=== PATIENT | female | born 1985 | race Caucasian/White ===

== ENCOUNTER 2019-09-24 23:38 | Emergency (ER) | payer OTHER ==
[~2019-09-24] VITALS: Ht 160 cm; Wt 55.9 kg
[2019-09-25] MEDS ORDERED: NS 1,000 ML IV ONE (00:15)
[2019-09-25 00:30] LABS: BASO % 0.7 % (0.0-1.0); EOS # 0.3 10^3/uL (0.0-0.5); EOS % 4.8 % (0.0-3.0); HEMATOCRIT 39.1 % (36.0-47.0); HEMOGLOBIN 12.8 g/dl (12.0-15.5); LYMPH # 1.9 10^3/uL (1.5-5.0); MEAN CORPUSCULAR HEMOGLOBIN 28.2 pg (27.0-33.0); MEAN CORPUSCULAR HGB CONC 32.7 g/dl (32.0-36.5); MEAN CORPUSCULAR VOLUME 86.1 fl (80.0-96.0); MONO # 0.5 10^3/uL (0.0-0.8); MONO % 8.8 % (0.0-5.0); NEUTROPHILS # 3.1 10^3/uL (1.5-8.5); NEUTROPHILS % 53.4 % (36.0-66.0); PLATELET COUNT, AUTOMATED 193 10^3/uL (150-450); RED BLOOD COUNT 4.54 10^6/uL (4.00-5.40); WHITE BLOOD COUNT 5.8 10^3/uL (4.0-10.0)
[2019-09-25 00:37] LABS: APPEARANCE, URINE CLEAR (CLEAR); BACTERIA, URINE AUTO NEGATIVE (NEGATIVE); BILIRUBIN, URINE AUTO NEGATIVE (NEGATIVE); BLOOD, URINE BLOOD 1+ (NEGATIVE); COLOR, URINE YELLOW (YELLOW); GLUCOSE, URINE (UA) AUTO NEGATIVE (NEGATIVE); KETONE, URINE AUTO TRACE mg/dL (NEGATIVE); LEUKOCYTE ESTERASE, URINE AUTO NEGATIVE (NEGATIVE); MUCUS, URINE SMALL (NEGATIVE); NITRITE, URINE AUTO NEGATIVE (NEGATIVE); PROTEIN, URINE AUTO NEGATIVE (NEGATIVE); RBC, URINE AUTO 10 /HPF (0-3); SPECIFIC GRAVITY URINE AUTO 1.016 (1.002-1.035); SQUAMOUS EPITHELIAL CELL UR AU 1 /HPF (0-6); UROBILINOGEN, URINE AUTO 0.2 mg/dL (0.0-2.0); WBC, URINE AUTO 2 /HPF (0-3)
[2019-09-25 00:51] LABS: ALBUMIN 4.1 GM/DL (3.2-5.2); ALT/SGPT 19 U/L (12-78); BILIRUBIN,DIRECT 0.1 MG/DL (0.0-0.2); BILIRUBIN,TOTAL 0.4 MG/DL (0.2-1.0); BLOOD UREA NITROGEN 13 MG/DL (7-18); CALCIUM LEVEL 9.5 MG/DL (8.5-10.1); CARBON DIOXIDE LEVEL 24 MEQ/L (21-32); CHLORIDE LEVEL 104 MEQ/L (98-107); CREATININE FOR GFR 0.92 MG/DL (0.55-1.30); GLOMERULAR FILTRATION RATE > 60.0 (>60); GLUCOSE, FASTING 123 MG/DL (70-100); HCG, SERUM QUANTITATIVE 189 MIU/ML; POTASSIUM SERUM 3.3 MEQ/L (3.5-5.1); SODIUM LEVEL 138 MEQ/L (136-145); TOTAL PROTEIN 7.8 GM/DL (6.4-8.2)
[2019-09-25] MEDS ORDERED: REGL10TA6 PO (01:13)
[2019-09-25 01:27] VITALS: BP 114/62
== END 2019-09-25 01:27 | disposition home or self-care (01) ==
LOC: M ED 23:38
DX: O99.89 Other specified diseases and conditions complicating pregnancy, childbirth and the puerperium (principal); R11.0 Nausea; Z3A.22 22 weeks gestation of pregnancy; Z88.5 Allergy status to narcotic agent; Z88.8 Allergy status to other drugs, medicaments and biological substances

== ENCOUNTER 2019-10-20 03:34 | Day surgery (SDC) | payer OTHER ==
[~2019-10-20] VITALS: Ht 160 cm; Wt 58.2 kg
[~2019-10-20 03:34] MED LIST: REGL10TA6 PO
[2019-10-20] MEDS ORDERED: MORPHINE 4 MG/ML 1ML VIAL/SYRINGE (J2270) IM ONE (04:15)
[2019-10-20 04:44] LABS: BASO % 0.3 % (0.0-1.0); EOS # 0.2 10^3/uL (0.0-0.5); EOS % 2.2 % (0.0-3.0); HEMATOCRIT 38.8 % (36.0-47.0); HEMOGLOBIN 12.8 g/dl (12.0-15.5); LYMPH % 10.5 % (24.0-44.0); MEAN CORPUSCULAR HEMOGLOBIN 28.4 pg (27.0-33.0); MONO # 0.5 10^3/uL (0.0-0.8); MONO % 5.5 % (0.0-5.0); NEUTROPHILS # 7.5 10^3/uL (1.5-8.5); NEUTROPHILS % 81.1 % (36.0-66.0); PLATELET COUNT, AUTOMATED 159 10^3/uL (150-450); RED BLOOD COUNT 4.51 10^6/uL (4.00-5.40); WHITE BLOOD COUNT 9.2 10^3/uL (4.0-10.0)
--- NOTE | 2019-10-20 05:29 | REPVR ---
PROCEDURE INFORMATION: Exam: US Duplex Artery and Vein of the Abdominal and/or Reproductive Organs, Complete Exam date and time: 10/20/2019 4:50 AM Age: 34 years old Clinical indication: Lmp or gestational age (in weeks): Unknown; Antepartum complications; Bleeding; ; Additional info: Vg bld TECHNIQUE: Imaging protocol: Real-time duplex ultrasound scan of the arterial and venous flow of the abdominal and/or reproductive organs with B-mode, color Doppler flow and spectral waveform analysis with image documentation. Exam focused on the region of clinical concern. Complete exam. Duplex images required to evaluate vascular conditions. COMPARISON: No relevant prior studies available. FINDINGS: Right ovary: Normal waveforms. Left ovary: Normal waveforms. IMPRESSION: No evidence of ovarian torsion. PROCEDURE INFORMATION: Exam: US First Trimester, Transabdominal and US , Transvaginal Exam date and time: 10/20/2019 4:50 AM Age: 34 years old Clinical indication: Lmp or gestational age (in weeks): Unknown; Antepartum complications; Bleeding; ; Additional info: Vg bld TECHNIQUE: Imaging protocol: Real-time transabdominal obstetrical ultrasound of the maternal pelvis and a first trimester , less than 14 weeks 0 days, with image documentation. Transvaginal imaging was used for better evaluation of the fetus and adnexa. COMPARISON: No relevant prior studies available. FINDINGS: GESTATION: Gestation: No intrauterine gestation. MATERNAL: Uterus: Uterus measures 8.3 x 4.7 x 6 cm. Thickened endometrial stripe measuring 1.8 cm. Cervix: Nabothian cyst. Right adnexa: Right ovary measures 2 x 2 x 0.7 cm. Left adnexa: There is a thick walled avascular cystic adnexal structure measuring approximately 2.3 x 3.6 x 2.5 cm. Adjacent left ovary measures 3.5 x 3 x 3.2 cm. There is a 1.3 cm left ovarian corpus luteal cyst. Trace free fluid adjacent to the left adnexa. Intraperitoneal: No intraperitoneal free fluid. IMPRESSION: No intrauterine gestation. Thickened endometrial stripe. Thick walled avascular left adnexal cystic structure separate from the left ovary with trace amount of adjacent fluid. Left adnexal ectopic is considered. Electronically signed by: Jorge Fox On 10/20/2019 05:29:01 AM
[2019-10-20] MEDS ORDERED: REGL10TA6 PO (05:41)
[2019-10-20] MEDS ORDERED: MULTTAB20 PO (05:41)
[2019-10-20] MEDS ORDERED: NS 1,000 ML IV SCH (06:30)
[2019-10-20] MEDS ORDERED: PROPOFOL 200 MG/20 ML VIAL As Ordered ONE (07:27)
[2019-10-20] MEDS ORDERED: ROCURONIUM BROMIDE 50 MG/5 ML VIAL As Ordered ONE (07:27)
[2019-10-20] MEDS ORDERED: LIDOCAINE 2% INJ 100 MG/5 ML SDV (FOR ANES.) As Ordered ONE ×3 (07:27→08:47)
[2019-10-20] MEDS ORDERED: MIDAZOLAM INJ 2 MG/2 ML VIAL (J2250) As Ordered ONE (07:28)
[2019-10-20] MEDS ORDERED: fentaNYL 100 MCG/2 ML INJECTION (J3010) As Ordered ONE ×2 (07:28→08:42)
[2019-10-20] MEDS ORDERED: ONDANSETRON 4MG/2ML VIAL (J2405) As Ordered ONE (07:28)
[2019-10-20] MEDS ORDERED: dexameTHASONE 4 MG/ML 1ML VIAL (J1100) As Ordered ONE (07:28)
[2019-10-20] MEDS ORDERED: BUPIVACAINE HCL 0.25% 30 ML VIAL As Ordered ONE (07:41)
--- NOTE | 2019-10-20 07:43 | HPEPDOC ---
General Date of Admission Date of Service: Oct 20, 2019 Attending Physician: CELESTE QUIJANO DO Chief Complaint The patient is a 34-year-old @unknown gestation admitted with a reason for visit of Possible Ectopic Pregnacy. Patient presents to ed with vaginal bleeding and worsening llq pain since 2200 yesterday. She had changed 2 pads since she started bleeding. She has had lower back pain for many days now and today pain worsened and localized to her left lower quadrant. Patient is being followed at [facility] for prengancy of undetermined location. denies n/v. Source: Patient Exam Limitations: Other (abdominal pain with movement) Home Medications Scheduled No122/Iron/Folic Acid ( Multi Tablet) 1 Each Tablet, 1 TAB PO DAILY, (Reported) Scheduled PRN Metoclopramide HCl (Reglan) 10 Mg Tablet, 10 MG PO Q6H PRN for NAUSEA, (Reported) Allergies Coded Allergies: codeine (Verified Allergy, Unknown, 09/24/19) divalproex sodium (Verified Allergy, Unknown, 09/24/19) Past Medical History Medical History chronic urticaria Surgical History appendectomy Family History Significant Family History: No pertinent family hx Social History * Smoker: Denies Alcohol: Denies Drugs: denies A-FIB/CHADSVASC A-FIB History Current/History of A-Fib/PAF?: No Current PO Anticoag Therapy: No Age/Risk Factor Scoring CHADSVASC: CHADSVASC Response (Comments) Value Age Risk Factor Age < 65 years old 0 Gender Risk Factor Female 1 Hx of CHF No 0 Hx of HTN No 0 Hx of Stroke/TIA/or VTE No 0 Hx of Diabetes No 0 Hx of Vascular Disease No 0 Total 1 Treatment Treatment ordered: NONE Review of Systems Constitutional: Denies: Chills, Fever, Malaise, Night Sweats, Weakness, Fatigue, Weight Loss, Lethargy, Other Eyes: Denies: Pain, Vision change, Conjunctivae inflammation, Eyelid inflammation, Redness, Other ENT: Denies: Head Aches, Ear Pain, Dysphagia, Sinus Congestion, Post Nasal Drip, Sore Throat, Epistaxis, Other Symptoms Skin: Denies: Rash, Lesions, Jaundice, Bruising, Itching, Dry, Breakdown, Nail Changes, Other Pulmonary: Denies: Dyspnea, Cough, Pleuritic Chest Pain, Other Symptoms Cardiovascular: Denies: Chest Pain, Palpitations, Orthopnea, Paroxysmal Noc. Dyspnea, Edema, Lt Headedness, Other Symptoms Gastrointestinal: Reports: Abdominal Pain Genitourinary: Denies: Dysuria, Frequency, Incontinence, Hematuria, Retention, Other Symptoms Musculoskeletal: Denies: Neck Pain, Back Pain, Shoulder Pain, Arm Pain, Hand Pain, Leg Pain, Foot Pain, Joint Pain, Muscle Pain, Spasms, Other Symptoms Other systems vaginal bleeding Physical Examination General Exam: Positive: Alert, Cooperative, No Acute Distress, Mild Distress, Moderate Distress, Severe Distress, Other ENT Exam: Positive: Atraumatic, Mucous membr. moist/pink Chest Exam: Positive: Clear to auscultation, Normal air movement; Negative: Rales, Rhonchi, Wheezing, Diminished, Other Heart Exam: Positive: Rate Normal, Normal S1, Normal S2; Negative: Tachycardic, Bradycardic, Regular Rhythm, Irregular Rhythm, Gallops, Murmurs, Rubs, Other Abdomen Exam: Positive: BS Hyperactive, Soft, Tenderness (+Guarding on llq) Extremity Exam: Negative: Clubbing, Cyanosis, Edema, Normal pulses, Tenderness, Swelling, Other Vital Signs Vital Signs Date Time Temp Pulse Resp B/P (MAP) Pulse Ox O2 Delivery O2 Flow Rate FiO2 10/20/19 06:36 98.6 101 19 119/62 (81) 99 Room Air Laboratory Data Labs 24H Laboratory Tests 2 10/20/19 04:27: Immature Granulocyte % (Auto) 0.4, Neutrophils (%) (Auto) 81.1H, Lymphocytes (%) (Auto) 10.5L, Monocytes (%) (Auto) 5.5H, Eosinophils (%) (Auto) 2.2, Basophils (%) (Auto) 0.3, Neutrophils # (Auto) 7.5, Lymphocytes # (Auto) 1.0L, Monocytes # (Auto) 0.5, Eosinophils # (Auto) 0.2, Basophils # (Auto) 0.0, Nucleated Red Blood Cells % (auto) 0.0, Human Chorionic Gonadotropin, Quant 6114 CBC/BMP Laboratory Tests 10/20/19 04:27 RAD Interpretation STUDY: pelvic US Rad Actions: Report Reviewed (concerning for possible left ectopic ) Assessment/Plan patient is a 34 yo with llq pain, possible ectopic vs. miscarriage with left adnexal cyst. Discussed with patient option of expectant management, medical management of presumed ectopic and surgical management with diagnostic laparoscopy with possible of removing one of the tu bes and or ovaries if they are involved with the ectopic . Benefit of expectant management and medical therapy discussed to include avoiding surgery. Risk of ruptured ectopic resulting in emergent surgery can be life threatening with more associated surgical risks. Benefit of diagnostic laparoscopy and remove of ectopic today is that we have a definitive diagnosis and treatment. Surgical risks of infection, bleeding requiring blood transfusion, injury to surrounding organs, post operative pain, anesthesia risks as well as risks of explained. patient expresses understanding and desires to have surgery today. admit for same day surgery. diagnostic laparoscopy with possible unilateral salpingo-oophorectomy, possible removal of ectopic . Plan / VTE VTE Prophylaxis Ordered?: Yes VTE Exclusion Mechanical Proph: Low Risk for VTE Plan Diet: CELESTE Peralta DO Oct 20, 2019 07:43
[2019-10-20] MEDS ORDERED: PHENYLephrine HCL 500 MCG/5 ML (100MCG/ML) SYRINGE (J2370) As Ordered ONE (08:31)
[2019-10-20] MEDS ORDERED: METOCLOPRAMIDE INJ 10MG/2ML VIAL (J2765) As Ordered ONE (08:54)
[2019-10-20] MEDS ORDERED: KETOROLAC 60 MG/2 ML VIAL (J1885) As Ordered ONE (08:55)
[2019-10-20] MEDS ORDERED: SUGAMMADEX SODIUM 500 MG/5 ML VIAL (BRIDION) As Ordered ONE (08:55)
[2019-10-20] MEDS ORDERED: ACETAMINOPHEN 1000MG 100ML IV BTL (OFIRMEV) (J0131 PER 10MG) As Ordered ONE (08:55)
[2019-10-20] MEDS ORDERED: fentaNYL 100 MCG/2 ML INJECTION (J3010) IV PRN (09:30)
[2019-10-20] MEDS ORDERED: LR 1,000 ML IV SCH (09:30)
[2019-10-20] MEDS ORDERED: METOCLOPRAMIDE INJ 10MG/2ML VIAL (J2765) IV PRN (09:30)
[2019-10-20] MEDS ORDERED: ONDANSETRON 4MG/2ML VIAL (J2405) IV PRN (09:30)
[2019-10-20] MEDS ORDERED: KETOROLAC 30 MG/ML VIAL (J1885) IV PRN (09:30)
[2019-10-20] MEDS ORDERED: MEPERIDINE INJ 25 MG/ML VIAL (J2175) As Ordered ONE (09:36)
[2019-10-20] MEDS: MEPERIDINE INJ 25 MG/ML VIAL (J2175) IV PRN ×2 (09:38→09:43)
[2019-10-20] MEDS ORDERED: PERCOCET 5MG/325MG TAB PO PRN (09:45)
--- NOTE | 2019-10-20 09:58 | POST-OPPD ---
Postoperative Procedure Note Date Of Procedure: Oct 20, 2019 PREOPERATIVE DIAGNOSIS: left lower quadrant pain with possible ectopic POSTOPERATIVE DIAGNOSIS: left fallopian tube ectopic FINDINGS: left fallopian tube ectopic , small amount of blood in cul-de-sac PROCEDURE: laparoscopic left salpinectomy SURGEON: Parul Louie DO CAN MARKER: Madie Olivas MD ANESTHESIA: GETA SPECIMENS: Left fallopian tube with ectopic ESTIMATED BLOOD LOSS: 10cc REPLACED: 1000cc LR DRAINS: 100 cc urine COMPLICATIONS: NONE POSTOPERATIVE CONDITION: STABLE Indication for procedure: Patient is a 34 yo with left lower quadrant pain and clinical signs and imaging concerning for possible ectopic . Patient desires definitive management with diagnostic laparoscopy with possible removal of abnormal tissue, possible unilateral salpingo-oophorectomy. Description of procedure: After informed consent obtained, patient taken to OR with IV running. She was placed in supine position and underwent general anesthesia induction with endotracheal intubation. Arms tucked. Patient placed in lithotomy. The abdomen, vagina and perineum were prepped and draped in the usual sterile fashion. Sponge stick placed vaginally. Kim placed. Marcaine 0.5% plain injected in planned incision site. Incision made in umbilicus. Veres needle used to enter the abdomen. Intraabdominal entry confirmed with saline test. Abdomen insufflated with CO2 Intraabdominal entry using 5mm clear view trocar with direct visualization. Patient placed in Trendelenburg. Five mm trocars introduced under direct visualization on patient's right and left lower abdomen. Surveys reviews no bowel injury. Small amount of blood in cul-de-sac. Normal appearing uterus and bilateral ovaries. Right fallopian tube appears normal. Left fallopian tube with intraluminal dark red cystic structure close to the cornual, consistent with an ectopic . Left fallopian tube and ectopic removed using Ligasure device. Umbilical incision extended. An 11mm trochar placed at the umbilical incision. Left fallopian tube and ectopic retrieved using 10mm Endocatch bag. Pelvis and abdomen irrigated and suctioned. Surgical sites hemostatic. Abdomen desufflated. All trocars removed. Umbilical fascia closed with figure of eight using 0-vicryl, UR-6 needle. Skin closed with 4-O monocryl and dermabond. All instruments removed from vaginal. Kim removed. Sponge count correct x 2. Patient taken out of OR in stable condition. DO MACIE Louie LUAT N. DO Oct 20, 2019 09:58
[2019-10-20 12:45] VITALS: BP 112/59
== END 2019-10-20 13:15 | disposition home or self-care (01) ==
LOC: M ED 03:34 → M SDC 03:35
PROVIDERS: ATTEND Obstetrics & Gynecology
DX: O00.90 Unspecified ectopic pregnancy without intrauterine pregnancy (principal); L50.8 Other urticaria; Z79.899 Other long term (current) drug therapy; Z88.5 Allergy status to narcotic agent; Z88.8 Allergy status to other drugs, medicaments and biological substances
CPT/HCPCS: 36415; 59151; 76801; 76817; 84702; 85025; 86850; 86900; 86901; 88305; 93976; 96374; 99284; J0131; J1100; J1885; J2175; J2250; J2270; J2370; J2405; J2765; J3010

== ENCOUNTER 2020-04-30 13:04 | Emergency (ER) | payer OTHER ==
[~2020-04-30] VITALS: Ht 160 cm; Wt 54.1 kg
[~2020-04-30 13:04] MED LIST changes: +MULTTAB20 PO
[2020-04-30] MEDS ORDERED: MIRA3350 (13:16)
[2020-04-30] MEDS ORDERED: VITA50005 (13:16)
[2020-04-30] MEDS ORDERED: NS 1,000 ML IV ONE (13:45)
[2020-04-30 13:52] LABS: BASO % 0.4 % (0.0-1.0); EOS # 0.3 10^3/uL (0.0-0.5); EOS % 6.6 % (0.0-3.0); HEMATOCRIT 40.2 % (36.0-47.0); HEMOGLOBIN 13.2 g/dl (12.0-15.5); LYMPH # 1.2 10^3/uL (1.5-5.0); LYMPH % 24.6 % (24.0-44.0); MEAN CORPUSCULAR HEMOGLOBIN 28.6 pg (27.0-33.0); MEAN CORPUSCULAR HGB CONC 32.8 g/dl (32.0-36.5); MEAN CORPUSCULAR VOLUME 87.2 fl (80.0-96.0); MONO # 0.4 10^3/uL (0.0-0.8); MONO % 8.4 % (0.0-5.0); NEUTROPHILS % 59.8 % (36.0-66.0); PLATELET COUNT, AUTOMATED 183 10^3/uL (150-450); RED BLOOD COUNT 4.61 10^6/uL (4.00-5.40)
[2020-04-30 14:03] LABS: INR 1.07; PROTHROMBIN TIME 13.6 SECONDS (11.8-14.0)
[2020-04-30 14:04] LABS: PARTIAL THROMBOPLASTIN TIME 30.9 SECONDS (25.0-38.4)
[2020-04-30 14:26] LABS: ALBUMIN 4.5 GM/DL (3.2-5.2); BILIRUBIN,DIRECT 0.2 MG/DL (0.0-0.2); BILIRUBIN,TOTAL 0.5 MG/DL (0.2-1.0); BLOOD UREA NITROGEN 13 MG/DL (7-18); CALCIUM LEVEL 9.8 MG/DL (8.5-10.1); CARBON DIOXIDE LEVEL 24 MEQ/L (21-32); CHLORIDE LEVEL 106 MEQ/L (98-107); CREATININE FOR GFR 0.86 MG/DL (0.55-1.30); GLOMERULAR FILTRATION RATE > 60.0 (>60); GLUCOSE, FASTING 94 MG/DL (70-100); LIPASE 111 U/L (73-393); SODIUM LEVEL 137 MEQ/L (136-145); TOTAL PROTEIN 8.5 GM/DL (6.4-8.2)
[2020-04-30 14:50] LABS: HCG, SERUM QUALITATIVE NEGATIVE (NEGATIVE)
[2020-04-30] MEDS: GASTROGRAFIN SOLUTION 30ML PO SCH ×2 (15:36→15:59)
[2020-04-30 15:54] LABS: ALT/SGPT 24 U/L (12-78)
[2020-04-30] MEDS ORDERED: ISOVUE-370 76% 100ML VIAL As Ordered ONE (17:07)
--- NOTE | 2020-04-30 18:13 | REPVR ---
PROCEDURE INFORMATION: Exam: CT Abdomen And Pelvis With Contrast Exam date and time: 04/30/2020 5:40 PM Age: 34 years old Clinical indication: Abdominal pain; Localized; Left; Additional info: Left sided abd pain TECHNIQUE: Imaging protocol: Computed tomography of the abdomen and pelvis with intravenous contrast. Radiation optimization: All CT scans at this facility use at least one of these dose optimization techniques: automated exposure control; mA and/or kV adjustment per patient size (includes targeted exams where dose is matched to clinical indication); or iterative reconstruction. Contrast material: ISOVUE 370; Contrast volume: 100 ml; Contrast route: INTRAVENOUS (IV); COMPARISON: No relevant prior studies available. FINDINGS: Lungs: No suspicious mass or airspace process in the visualized lung bases. Liver: Liver appears normal with no focal abnormality. Gallbladder and bile ducts: Gallbladder is present and shows no evidence of gallstone. Pancreas: Pancreas appears normal. No focal mass or peripancreatic inflammation. Spleen: Spleen appears homogeneous without focal mass. Adrenals: Adrenal glands are normal in appearance. Kidneys and ureters: Kidneys appear normal, with no stone, solid mass or hydronephrosis. Stomach and bowel: No evidence of small bowel obstruction. Terminal ileum has normal appearance. No evidence of acute diverticulitis. Appendix: Appendix is not seen. No RLQ inflammation to suggest appendicitis. Intraperitoneal space: No pneumoperitoneum. Vasculature: No aortic aneurysm. Main portal and splenic veins enhance normally. No aortic aneurysm. Main portal and splenic veins enhance normally. Lymph nodes: No enlarged lymph nodes. Bladder: Urinary bladder appears normal. Reproductive: No overt enlargement of the uterus or ovaries. Bones/joints: Bony structures show no acute fracture or destructive process. Soft tissues: No concerning focal abnormality of the extra-abdominal and pelvic soft tissues. IMPRESSION: No acute or concerning focal abdominal or pelvic process to explain left-sided abdominal pain. Electronically signed by: Ap Marinelli On 04/30/2020 18:13:31 PM
[2020-04-30 18:30] VITALS: BP 112/62
--- NOTE | 2020-05-01 08:02 | ECGEPIP ---
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
== END 2020-04-30 18:58 | disposition home or self-care (01) ==
LOC: M ED 13:04
DX: R10.9 Unspecified abdominal pain (principal); I45.19 Other right bundle-branch block; Z87.59 Personal history of other complications of pregnancy, childbirth and the puerperium; L50.1 Idiopathic urticaria; Z79.899 Other long term (current) drug therapy; Z88.5 Allergy status to narcotic agent; Z88.8 Allergy status to other drugs, medicaments and biological substances
CPT/HCPCS: 74177; 80048; 80076; 81001; 83690; 84703; 85025; 85610; 85730; 93005; 93041; 96360; 99284; Q9963; Q9967

== ENCOUNTER 2020-07-18 05:49 | Emergency (ER) | payer OTHER ==
[~2020-07-18] VITALS: Ht 160 cm; Wt 55.3 kg
[~2020-07-18 05:49] MED LIST changes: +MIRA3350; +VITA50005
[2020-07-18] MEDS ORDERED: ACET-683 PO (06:02)
[2020-07-18] MEDS ORDERED: TRAZ-257 (06:19)
[2020-07-18] MEDS ORDERED: ESCI10TA2 (06:19)
[2020-07-18 06:52] LABS: BASO % 0.2 % (0.0-1.0); EOS # 0.3 10^3/uL (0.0-0.5); EOS % 5.9 % (0.0-3.0); HEMATOCRIT 41.9 % (36.0-47.0); HEMOGLOBIN 13.9 g/dl (12.0-15.5); LYMPH # 1.3 10^3/uL (1.5-5.0); LYMPH % 28.5 % (24.0-44.0); MEAN CORPUSCULAR HEMOGLOBIN 28.4 pg (27.0-33.0); MEAN CORPUSCULAR HGB CONC 33.2 g/dl (32.0-36.5); MEAN CORPUSCULAR VOLUME 85.7 fl (80.0-96.0); MONO # 0.4 10^3/uL (0.0-0.8); MONO % 7.8 % (0.0-5.0); NEUTROPHILS # 2.6 10^3/uL (1.5-8.5); NEUTROPHILS % 57.2 % (36.0-66.0); PLATELET COUNT, AUTOMATED 165 10^3/uL (150-450); RED BLOOD COUNT 4.89 10^6/uL (4.00-5.40); WHITE BLOOD COUNT 4.6 10^3/uL (4.0-10.0)
--- NOTE | 2020-07-18 07:30 | REPVR ---
PROCEDURE INFORMATION: Exam: CT Head Without Contrast Exam date and time: 07/18/2020 6:23 AM Age: 34 years old Clinical indication: Altered mental status/memory loss; Confusion or disorientation; Additional info: AMS TECHNIQUE: Imaging protocol: Computed tomography of the head without contrast. Radiation optimization: All CT scans at this facility use at least one of these dose optimization techniques: automated exposure control; mA and/or kV adjustment per patient size (includes targeted exams where dose is matched to clinical indication); or iterative reconstruction. COMPARISON: No relevant prior studies available. FINDINGS: Brain: Normal. No hemorrhage. Unremarkable white matter. No mass effect. Ventricles: No ventriculomegaly. Bones/joints: Unremarkable. No acute fracture. Paranasal sinuses: Visualized sinuses are unremarkable. No fluid levels. Mastoid air cells: Visualized mastoid air cells are well aerated. Soft tissues: Unremarkable. IMPRESSION: No acute intracranial abnormality. Electronically signed by: Khurram Corey On 07/18/2020 07:30:17 AM
[2020-07-18 07:38] LABS: ACETAMINOPHEN LEVEL < 2.0 UG/ML (10.0-30.0); ALBUMIN 4.4 GM/DL (3.2-5.2); ALT/SGPT 18 U/L (12-78); BILIRUBIN,DIRECT 0.2 MG/DL (0.0-0.2); BILIRUBIN,TOTAL 0.5 MG/DL (0.2-1.0); BLOOD UREA NITROGEN 12 MG/DL (7-18); CALCIUM LEVEL 9.5 MG/DL (8.5-10.1); CARBON DIOXIDE LEVEL 23 MEQ/L (21-32); CHLORIDE LEVEL 108 MEQ/L (98-107); CPK CREATINE PHOSPHOKINASE 87 U/L (26-192); CREATININE FOR GFR 0.82 MG/DL (0.55-1.30); ETHYL ALCOHOL (ETHANOL) < 0.003 % (0.000-0.010); GLOMERULAR FILTRATION RATE > 60.0 (>60); GLUCOSE, FASTING 95 MG/DL (70-100); POTASSIUM SERUM 3.9 MEQ/L (3.5-5.1); SALICYLATE LEVEL < 1.7 MG/DL (5.0-30.0); SODIUM LEVEL 140 MEQ/L (136-145); TOTAL PROTEIN 8.2 GM/DL (6.4-8.2)
[2020-07-18] MEDS ORDERED: [UNRECOGNIZED DRUG - OTHER] (08:16)
--- NOTE | 2020-07-18 08:26 | ECGEPIP ---
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
[2020-07-18 08:42] VITALS: BP 125/66
== END 2020-07-18 08:45 | disposition home or self-care (01) ==
LOC: M ED 05:49
DX: R42 Dizziness and giddiness (principal); R00.1 Bradycardia, unspecified; I45.19 Other right bundle-branch block; F41.9 Anxiety disorder, unspecified; Z79.899 Other long term (current) drug therapy; Z91.010 Allergy to peanuts; Z88.5 Allergy status to narcotic agent; Z88.8 Allergy status to other drugs, medicaments and biological substances
CPT/HCPCS: 70450; 80048; 80076; 82550; 84443; 84702; 85025; 93005; 93041; 94760; 99285; G0480

== ENCOUNTER 2020-10-14 00:15 | Emergency (ER) | payer OTHER ==
[~2020-10-14] VITALS: Ht 160 cm; Wt 53.6 kg
[~2020-10-14 00:15] MED LIST changes: +ACET-683 PO; +ESCI10TA2; +TRAZ-257; +[UNRECOGNIZED DRUG - OTHER]
[2020-10-14] MEDS ORDERED: LORazepam 2 MG/ML VIAL IV STA (00:49)
[2020-10-14 01:02] LABS: BASO % 0.2 % (0.0-1.0); EOS % 0.1 % (0.0-3.0); HEMATOCRIT 39.8 % (36.0-47.0); HEMOGLOBIN 12.9 g/dl (12.0-15.5); LYMPH # 0.9 10^3/uL (1.5-5.0); MEAN CORPUSCULAR HEMOGLOBIN 27.7 pg (27.0-33.0); MEAN CORPUSCULAR HGB CONC 32.4 g/dl (32.0-36.5); MEAN CORPUSCULAR VOLUME 85.6 fl (80.0-96.0); MONO # 0.3 10^3/uL (0.0-0.8); MONO % 2.9 % (0.0-5.0); NEUTROPHILS # 7.9 10^3/uL (1.5-8.5); NEUTROPHILS % 86.4 % (36.0-66.0); PLATELET COUNT, AUTOMATED 201 10^3/uL (150-450); RED BLOOD COUNT 4.65 10^6/uL (4.00-5.40); WHITE BLOOD COUNT 9.2 10^3/uL (4.0-10.0)
[2020-10-14 01:12] LABS: HCG, SERUM QUALITATIVE NEGATIVE (NEGATIVE)
[2020-10-14 01:34] LABS: BLOOD UREA NITROGEN 12 MG/DL (7-18); CALCIUM LEVEL 8.7 MG/DL (8.5-10.1); CARBON DIOXIDE LEVEL 19 MEQ/L (21-32); CHLORIDE LEVEL 107 MEQ/L (98-107); CK-MB VALUE MASS < 1.0 NG/ML (<3.6); CPK CREATINE PHOSPHOKINASE 100 U/L (26-192); CREATININE FOR GFR 0.87 MG/DL (0.55-1.30); GLOMERULAR FILTRATION RATE > 60.0 (>60); GLUCOSE, FASTING 119 MG/DL (70-100); NT-PRO BNP 25 PG/ML (<125); SODIUM LEVEL 138 MEQ/L (136-145); TROPONIN I < 0.02 NG/ML (< 0.10)
--- NOTE | 2020-10-14 02:04 | REPVR ---
PROCEDURE INFORMATION: Exam: XR Chest, 1 View Exam date and time: 10/14/2020 1:55 AM Age: 35 years old Clinical indication: Chest pain TECHNIQUE: Imaging protocol: XR of the chest Views: 1 view. COMPARISON: No relevant prior studies available. FINDINGS: Lungs: Unremarkable. No consolidation. No pulmonary edema. Pleural space: Unremarkable. No pleural effusion or pneumothorax is identified. Heart/Mediastinum: Unremarkable. No cardiomegaly. Bones/joints: Unremarkable. IMPRESSION: No acute findings. Electronically signed by: Rey Sanchez On 10/14/2020 02:04:55 AM
[2020-10-14] MEDS ORDERED: ISOVUE-370 76% 100ML VIAL As Ordered ONE (02:15)
--- NOTE | 2020-10-14 03:42 | REPVR ---
PROCEDURE INFORMATION: Exam: CT Angiography Chest With Contrast Exam date and time: 10/14/2020 2:50 AM Age: 35 years old Clinical indication: Chest pain; Additional info: Chest pain, ddimer TECHNIQUE: Imaging protocol: Computed tomographic angiography of the chest with intravenous contrast. 3D rendering (Not supervised by radiologist): MIP and/or 3D reconstructed images were created by the technologist. Radiation optimization: All CT scans at this facility use at least one of these dose optimization techniques: automated exposure control; mA and/or kV adjustment per patient size (includes targeted exams where dose is matched to clinical indication); or iterative reconstruction. Contrast material: ISOVUE 370; Contrast volume: 75 ml; Contrast route: INTRAVENOUS (IV); COMPARISON: CR PORTABLE CHEST X-RAY 10/14/2020 1:27 AM FINDINGS: Pulmonary arteries: Normal. No pulmonary emboli. Aorta: Unremarkable. No aortic aneurysm. No aortic dissection. Lungs: Unremarkable. No consolidation. No masses. Pleural space: Unremarkable. No pneumothorax. No pleural effusion. Heart: Unremarkable. No cardiomegaly. No pericardial effusion. Lymph nodes: Unremarkable. No enlarged lymph nodes. Bones/joints: Unremarkable. No acute fracture. Soft tissues: Unremarkable. IMPRESSION: No acute findings. Electronically signed by: Chito Costello On 10/14/2020 03:41:32 AM
[2020-10-14 04:15] VITALS: BP 106/67
--- NOTE | 2020-10-14 12:26 | ECGEPIP ---
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
== END 2020-10-14 04:26 | disposition home or self-care (01) ==
LOC: M ED 00:15
DX: F41.0 Panic disorder [episodic paroxysmal anxiety] (principal); R00.0 Tachycardia, unspecified; R94.31 Abnormal electrocardiogram [ECG] [EKG]; Z88.5 Allergy status to narcotic agent; Z88.8 Allergy status to other drugs, medicaments and biological substances; Z91.010 Allergy to peanuts
CPT/HCPCS: 36415; 71045; 71275; 80048; 82550; 82553; 83880; 84484; 84703; 85025; 85379; 93005; 93041; 94760; 99285; J2060; Q9967

== ENCOUNTER → 2020-11-29 | Outpatient (CLI) | payer OTHER ==
[~2020-11-29] MED LIST changes: +ESCI10TA16; -ESCI10TA2; +ISOVUE-370 76% 100ML VIAL As Ordered ONE
== END ==
LOC: M RAD 13:11
PROVIDERS: ATTEND Physician Assistant Medical
DX: I67.1 Cerebral aneurysm, nonruptured (principal); M54.81 Occipital neuralgia

== ENCOUNTER 2021-07-20 10:16 | Emergency (ER) | payer OTHER ==
[~2021-07-20] VITALS: Ht 160 cm; Wt 56.8 kg
[~2021-07-20 10:16] MED LIST changes: +ERGO500029; -ISOVUE-370 76% 100ML VIAL As Ordered ONE; -VITA50005
[2021-07-20] MEDS ORDERED: NS 1,000 ML IV ONE (12:40)
[2021-07-20] MEDS ORDERED: KETOROLAC 30 MG/ML 1ML VIAL IV ONE (12:40)
[2021-07-20] MEDS ORDERED: ONDANSETRON 4MG/2ML VIAL IV ONE (12:40)
[2021-07-20 13:23] LABS: BASO % 0.1 % (0.0-1.0); EOS # 0.2 10^3/uL (0.0-0.5); HEMATOCRIT 42.2 % (36.0-47.0); HEMOGLOBIN 13.8 g/dl (12.0-15.5); LYMPH # 1.4 10^3/uL (1.5-5.0); LYMPH % 19.8 % (24.0-44.0); MEAN CORPUSCULAR HEMOGLOBIN 27.9 pg (27.0-33.0); MEAN CORPUSCULAR HGB CONC 32.7 g/dl (32.0-36.5); MEAN CORPUSCULAR VOLUME 85.3 fl (80.0-96.0); MONO # 0.4 10^3/uL (0.0-0.8); MONO % 5.8 % (2.0-8.0); NEUTROPHILS # 4.9 10^3/uL (1.5-8.5); PLATELET COUNT, AUTOMATED 178 10^3/uL (150-450); RED BLOOD COUNT 4.95 10^6/uL (4.00-5.40); WHITE BLOOD COUNT 6.9 10^3/uL (4.0-10.0)
[2021-07-20 13:46] LABS: ERYTHROCYTE SEDIMENTATION RATE 6 mm/hr (0-20)
[2021-07-20] MEDS ORDERED: ISOVUE-370 76% 100ML VIAL As Ordered ONE (13:47)
[2021-07-20] MEDS ORDERED: diphenhydrAMINE 50MG/ML VIAL (J1200) IV STA (14:05)
--- NOTE | 2021-07-20 14:10 | REP ---
INDICATION: diffuse abd and flank pain. COMPARISON: None. TECHNIQUE: Imaging protocol: Computed tomography of the abdomen and pelvis with IV contrast. Contiguous 3 mm thick axial projection images were obtained through the abdomen and pelvis. 2D sagittal and coronal reconstructions were performed. Radiation optimization: All CT scans at this facility use at least one of these dose optimization techniques: automated exposure control; mA and/or kV adjustment per patient size (includes targeted exams where dose is matched to clinical indication); or iterative reconstruction. Contrast material: ISOVUE 370; Contrast volume: 100 ml; Contrast route: INTRAVENOUS (IV). FINDINGS: Heart and lung bases: The lung bases are clear. There are no pleural effusions. The heart size is normal. There is no pericardial effusion. Liver: Normal. Gallbladder: Normal. Spleen: Normal Pancreas: Normal. Adrenal glands: Normal. Kidneys/bladder: The kidneys enhance normally. The urinary bladder has a normal unenhanced appearance. Pelvic structures: The uterus and ovaries are normal. There is a physiologic amount of free fluid the pelvis. GI tract: There is stool throughout the colon. The appendix is surgically absent. Abdominal wall and mesentery: There are no abdominal wall defects. There is no mesenteric or retroperitoneal lymphadenopathy. Abdominal aorta and vascular structures: The abdominal aorta, inferior vena cava, and portal venous system are normal. Bony structures: There is mild levoscoliosis of the thoracolumbar spine. The SI joints and hips are normal. IMPRESSION: 1. Free fluid the pelvis consistent with recent ovulation. 2. No evidence of nephrolithiasis, ureterolithiasis or hydronephrosis. 3. Moderate constipation. 4. Other findings as noted. <Electronically signed by Montrell Adams > 07/20/21 [id number]
[2021-07-20] MEDS ORDERED: ASPE4PAD TOP (15:04)
[2021-07-20] MEDS ORDERED: MACR100C43 PO (15:04)
[2021-07-20] MEDS ORDERED: REGL10TA6 PO (15:04)
[2021-07-20 15:25] VITALS: BP 149/77
== END 2021-07-20 15:27 | disposition home or self-care (01) ==
LOC: M ED 10:16
DX: K59.00 Constipation, unspecified (principal); N39.0 Urinary tract infection, site not specified; Z88.5 Allergy status to narcotic agent; Z91.010 Allergy to peanuts; Z88.8 Allergy status to other drugs, medicaments and biological substances; Z86.79 Personal history of other diseases of the circulatory system
CPT/HCPCS: 74177; 80047; 81001; 84702; 85025; 85652; 86140; 87086; 96361; 96374; 96375; 99284; J1200; J2405; Q9967

== ENCOUNTER 2022-02-20 22:36 | Emergency (ER) | payer OTHER ==
[~2022-02-20] VITALS: Ht 160 cm; Wt 53.0 kg
[~2022-02-20 22:36] MED LIST changes: +ASPE4PAD TOP; +MACR100C43 PO
[2022-02-20 22:40] VITALS: BP 138/81
[2022-02-21] MEDS ORDERED: ISOVUE-370 76% 100ML VIAL As Ordered ONE (01:32)
[2022-02-21 01:51] LABS: BASO % 0.2 % (0.0-1.0); EOS # 0.1 10^3/uL (0.0-0.5); EOS % 2.2 % (0.0-3.0); HEMATOCRIT 39.8 % (36.0-47.0); HEMOGLOBIN 13.1 g/dl (12.0-15.5); LYMPH # 1.6 10^3/uL (1.5-5.0); LYMPH % 25.1 % (24.0-44.0); MEAN CORPUSCULAR HEMOGLOBIN 28.5 pg (27.0-33.0); MEAN CORPUSCULAR HGB CONC 32.9 g/dl (32.0-36.5); MEAN CORPUSCULAR VOLUME 86.7 fl (80.0-96.0); MONO # 0.4 10^3/uL (0.0-0.8); MONO % 6.9 % (2.0-8.0); NEUTROPHILS # 4.1 10^3/uL (1.5-8.5); NEUTROPHILS % 65.3 % (36.0-66.0); PLATELET COUNT, AUTOMATED 193 10^3/uL (150-450); RED BLOOD COUNT 4.59 10^6/uL (4.00-5.40); WHITE BLOOD COUNT 6.3 10^3/uL (4.0-10.0)
[2022-02-21 02:17] LABS: ALBUMIN 4.1 GM/DL (3.2-5.2); BILIRUBIN,DIRECT 0.1 MG/DL (0.0-0.2); BILIRUBIN,TOTAL 0.5 MG/DL (0.2-1.0); TOTAL PROTEIN 7.7 GM/DL (6.4-8.2)
[2022-02-21] MEDS ORDERED: ONDANSETRON 4MG/2ML VIAL IV ONE (04:00)
[2022-02-21] MEDS ORDERED: ACETAMINOPHEN 325 MG TAB PO ONE (04:00)
[2022-02-22 14:09] LABS: IgG P18 AB Absent (.); IgG P23 AB Absent (.); IgG P28 AB Absent (.); IgG P30 AB Absent (.); IgG P39 AB Absent (.); IgG P41 AB Absent (.); IgG P45 AB Absent (.); IgG P66 AB Absent (.); IgG P93 AB Absent (.); IgM P23 AB Absent (.); IgM P39 AB Absent (.); IgM P41 AB Absent (.); LYME IgG WB INTERPRETATION Negative (.); LYME IgM WB INTERPRETATION Negative (.)
== END 2022-02-21 04:58 | disposition home or self-care (01) ==
LOC: M ED 22:36
DX: N83.299 Other ovarian cyst, unspecified side (principal); Z91.010 Allergy to peanuts; Z88.5 Allergy status to narcotic agent; Z88.8 Allergy status to other drugs, medicaments and biological substances; R10.2 Pelvic and perineal pain
CPT/HCPCS: 36415; 74176; 76856; 80047; 80076; 81001; 83690; 84702; 85025; 86617; 87086; 93976; 99284; Q9967

== ENCOUNTER → 2022-07-07 | Outpatient (CLI) | payer OTHER ==
[~2022-07-07] MED LIST changes: +LIDOCAINE 1% MDV 20ML VIAL As Ordered ONE; +MULT-90 PO
[2022-07-07 10:31] VITALS: BP 136/82
== END ==
LOC: M IRPRO 09:05
PROVIDERS: ATTEND Otolaryngology
DX: E04.1 Nontoxic single thyroid nodule (principal)

== ENCOUNTER → 2022-08-13 | Outpatient (CLI) | payer OTHER ==
[~2022-08-13] MED LIST changes: -LIDOCAINE 1% MDV 20ML VIAL As Ordered ONE
[2022-08-13 13:57] LABS: FREE T3 2.6 PG/ML (2.2-4.0); FREE T4 0.93 NG/DL (0.76-1.46)
[2022-08-13 14:33] LABS: THYROID PEROXIDASE ANTIBODY > 1300.0 U/ML (<60.0)
[2022-08-13 14:35] LABS: PTH INTACT 26.4 PG/ML (18.5-88.0)
== END ==
LOC: M LAB 12:14
PROVIDERS: ATTEND Otolaryngology
DX: E04.1 Nontoxic single thyroid nodule (principal)

== ENCOUNTER 2022-08-21 19:43 | Emergency (ER) | payer OTHER ==
[~2022-08-21] VITALS: Ht 175.3 cm; Wt 54.5 kg
[2022-08-21 20:41] LABS: BASO % 0.2 % (0.0-1.0); EOS # 0.3 10^3/uL (0.0-0.5); HEMATOCRIT 39.2 % (36.0-47.0); LYMPH # 1.2 10^3/uL (1.5-5.0); MEAN CORPUSCULAR HEMOGLOBIN 28.1 pg (27.0-33.0); MEAN CORPUSCULAR HGB CONC 33.2 g/dl (32.0-36.5); MEAN CORPUSCULAR VOLUME 84.8 fl (80.0-96.0); MONO # 0.4 10^3/uL (0.0-0.8); MONO % 7.3 % (2.0-8.0); NEUTROPHILS # 3.1 10^3/uL (1.5-8.5); NEUTROPHILS % 62.3 % (36.0-66.0); PLATELET COUNT, AUTOMATED 184 10^3/uL (150-450); RED BLOOD COUNT 4.62 10^6/uL (4.00-5.40)
[2022-08-21] MEDS ORDERED: MORPHINE 4 MG/ML 1ML VIAL/SYRINGE IV ONE (21:15)
[2022-08-21] MEDS ORDERED: GI COCKTAIL 50ML BTL(HYOSCYAMINE/MAALOX/LIDOCAINE VISCOUS)(1:3:1) PO ONE (21:15)
[2022-08-21] MEDS ORDERED: ONDANSETRON 4MG 2ML VIAL IV ONE (21:15)
[2022-08-21] MEDS ORDERED: PANTOPRAZOLE 40MG VIAL IV ONE (21:15)
[2022-08-21] MEDS ORDERED: NS 1,000 ML IV SCH (21:20)
[2022-08-21 21:47] LABS: ALBUMIN 4.2 GM/DL (3.2-5.2); ALT/SGPT 22 U/L (12-78); BILIRUBIN,DIRECT 0.2 MG/DL (0.0-0.2); BILIRUBIN,TOTAL 0.7 MG/DL (0.2-1.0); BLOOD UREA NITROGEN 9 MG/DL (7-18); CALCIUM LEVEL 9.5 MG/DL (8.5-10.1); CARBON DIOXIDE LEVEL 22 MEQ/L (21-32); CHLORIDE LEVEL 106 MEQ/L (98-107); CREATININE FOR GFR 1.04 MG/DL (0.55-1.30); GLOMERULAR FILTRATION RATE > 60.0 (>60); GLUCOSE, FASTING 131 MG/DL (70-100); LIPASE 122 U/L (73-393); POTASSIUM SERUM 3.5 MEQ/L (3.5-5.1); SODIUM LEVEL 139 MEQ/L (136-145); TOTAL PROTEIN 7.8 GM/DL (6.4-8.2)
[2022-08-21] MEDS ORDERED: ISOVUE-370 76% 100ML VIAL As Ordered ONE (21:54)
[2022-08-21 23:05] VITALS: BP 134/88
== END 2022-08-21 23:11 | disposition home or self-care (01) ==
LOC: M ED 19:43
DX: R10.9 Unspecified abdominal pain (principal); R11.2 Nausea with vomiting, unspecified; C73 Malignant neoplasm of thyroid gland; I67.1 Cerebral aneurysm, nonruptured; F43.10 Post-traumatic stress disorder, unspecified; Z90.89 Acquired absence of other organs; Z88.5 Allergy status to narcotic agent; Z91.010 Allergy to peanuts; Z88.8 Allergy status to other drugs, medicaments and biological substances
CPT/HCPCS: 74177; 80048; 80076; 81000; 83690; 84702; 85025; 96361; 96374; 96375; 99284; C9113; J2270; J2405; Q9967